=== PATIENT | female | born 1955 | race Caucasian/White ===

== ENCOUNTER 2021-03-16 17:04 | Emergency (ER) | payer MEDICARE ==
[2021-03-16 20:29] LABS: RED BLOOD COUNT 2.69 M/UL (4.00-5.10); WHITE BLOOD COUNT 10.8 K/UL (4.5-11.0)
[2021-03-16 20:54] LABS: BUN/CREATININE RATIO 62 (0-10)
== END 2021-03-17 02:20 | disposition home or self-care (01) ==
LOC: ER1 17:04
PROVIDERS: Physician Assistant Medical
DX: E86.0 Dehydration (principal); E11.9 Type 2 diabetes mellitus without complications; Z20.822 Contact with and (suspected) exposure to COVID-19; I10 Essential (primary) hypertension; Z85.3 Personal history of malignant neoplasm of breast; Z87.891 Personal history of nicotine dependence
CPT/HCPCS: 70450; 71045; 80053; 81001; 82550; 82553; 83540; 83550; 83874; 84439; 84443; 84484; 85025; 85379; 93005; 99284; U0002